=== PATIENT | female | born 1995 | race Caucasian/White ===

== ENCOUNTER 2017-11-22 17:26 | Emergency (ER) | payer OTHER ==
[~2017-11-22] VITALS: Ht 152.4 cm; Wt 64.4 kg
== END 2017-11-22 22:21 | disposition home or self-care (01) ==
LOC: ER 17:26
DX: S43.491A Other sprain of right shoulder joint, initial encounter (principal); V49.9XXA Car occupant (driver) (passenger) injured in unspecified traffic accident, initial encounter; Y93.89 Activity, other specified; Y92.488 Other paved roadways as the place of occurrence of the external cause; Y99.8 Other external cause status